=== PATIENT | male | born 1950 | race Caucasian/White ===

== ENCOUNTER 2016-08-25 09:21 | Observation (INO) | payer OTHER ==
--- NOTE | ~2016-08-25 | EKG ---
PATIENT: AMY BARRETT UNIT #: [id number] Ventricular Rate: 136 BPM Atrial Rate: 136 BPM P-R Interval: 140 ms QRS Duration: 104 ms Q-T Interval: 300 ms QTC Calculation(Bezet): 451 ms P Ada: 67 degrees Calculated R Ada: 85 degrees Calculated T Ada: 43 degrees Diagnosis Line: Sinus tachycardia Diagnosis Line: Borderline ECG Diagnosis Line: No previous ECGs available Diagnosis Line: Confirmed by JOSEPH CODY MD ([id number]) on Diagnosis Line: 08/25/2016 7:14:26 PM INTERPRETING MD: VILMA
--- NOTE | ~2016-08-25 | EE ---
Unit #: [id number] #: [id number] Patient: AMY BARRETT [id number] [address] [address] [id number] I MR#: [id number] NAME: AMY BARRETT : 1950 SEX: M STUDY DATE/TIME: 08/26/2016 UNIT: C3A PCU ROOM: [facility] STUDY DESCRIPTION: EEG Attending Physician: Nichole Knapp M.D. Referring Physician: Olivia Newby M.D. Primary Care Physician: Gagan George D.O. NEURODIAGNOSTICS REPORT PROCEDURE PERFORMED EEG. REASON FOR STUDY Multiple seizures, dementia. EEG DESCRIPTION This is an inpatient, digitally recorded, multi-montage, adult EEG with leads placed according to the International 10-20 system. Hyperventilation was not done, but photic stimulation was attempted. PROCEDURE REPORT This EEG shows 5- to 6-Hz posterior background. The patient was awake initially, then became drowsy, but I think it was still not just the drowsy state for either true slowing. The patient then fell asleep, and stage II sleep was seen. Hyperventilation was not done. Photic stimulation was attempted in intermittent stepwise pattern up to flash frequency of 30 Hz, but I did not see any driving, asymmetry or paroxysmal activity. No clinical events were seen. IMPRESSION This is an abnormal EEG showing diffuse slowing, which is indicative of encephalopathy. I think it is more than just drowsiness. I think this is slowing and encephalopathy, whether acute or chronic or progressive; that remains to be seen and probably reevaluated with further imaging studies and fully stimulated. Nothing suggesting seizure or status, so clinical correlation is recommended. Dictated by... Jorge Carmen/scout TD: 08/28/2016 07:39 JOB #: [id number] Unit #: [id number] #: [id number] Patient: AMY BARRETT NEURODIAGNOSTICS REPORT Page 1 of 1 X Olivia Newby MD NEURODIAGNOSTICS REPORT
--- NOTE | ~2016-08-25 | CO ---
Unit #: [id number] #: [id number] Patient: AMY BARRETT [id number] [facility] [address] [facility]. [place], [place] [address] [id number] Aydin MR#: [id number] NAME: AMY BARRETT. ROOM: 317 Age: 66 Sex: M Admission Date: 08/25/2016 : 1950 Attending Physician: Nichole Knapp M.D. Primary Care Physician: Gagan George D.O. Consultation Date: 08/25/2016 CONSULTATION REPORT PRIMARY CARE PHYSICIAN Dr. Gagna George. REASON FOR CONSULTATION Multiple seizure. PATIENT IDENTIFICATION This is a 66-year-old right-handed white male, who was evaluated in room ER, T6 at [facility]. SOURCE OF INFORMATION My discussion with the ER physician Dr. Skelton and also my discussion with the patient's . PROBLEM LIST 1. He has history of hypertension. 2. Alzheimer dementia and he sees Dr. Cade Patterson. He is supposed to go to see somebody at [place]. 3. History of renal stone removal. 4. Possible BPH. HISTORY OF PRESENT ILLNESS This is a 66-year-old gentleman, who was brought to the emergency room because he had generalized convulsive type episode, the first one was about 8 o'clock in the morning. He was brought in and he had another witnessed seizure. He was loaded on Keppra and they called me and I said I will follow him. CT of the head did not show anything major, nothing suggesting infection. He has been at baseline and he does have cognitive changes, but nothing has changed otherwise in his medication, fever, insect bites, travel, or other infection so he is being admitted for further workup. He is not in status. When I saw him, he already had a load of Keppra and he also got some Ativan, so he was mildly lethargic, but following commands and talking to me, he is not oriented. PAST MEDICAL HISTORY As discussed above. PAST SURGICAL HISTORY As discussed above. Unit #: [id number] #: [id number] Patient: AMY BARRETT ALLERGIES None. HOME MEDICATIONS Losartan/hydrochlorothiazide, Namenda, aspirin, Flomax, and fish oil. FAMILY HISTORY No stroke in young. SOCIAL HISTORY He is . Lives with his . No history of tobacco, alcohol, or drug use. REVIEW OF SYSTEMS Really could not be obtained, because of his present condition. PHYSICAL EXAMINATION VITAL SIGNS: His temperature is 98.4, pulse is 108, respirations 18, blood pressure 130/98, O2 saturations are 95%. Weight of 195 pounds. BMI was 29. NEUROLOGIC: He is awake, but lethargic. He is oriented to himself. He still thinks he is in PRP. He can name. He can follow some simple commands. He is otherwise not very much oriented except he could tell me his . He does follow commands. Cranial examination demonstrates full rae of vision to confrontation. Eye movements are conjugate. I did not see any ptosis. I did not see any nystagmus. Extraocular movements showed slow saccadic movements. No ptosis. No nystagmus. Sensation on the face and scalp are normal. Strength of muscles of facial expression normal. Hearing seemed to be mildly decreased. Tongue was midline. I could not visualize his oropharynx or uvula. Head turning was spontaneous. Motor examination, normal bulk and tone. Strength was 5-/5 all over. Sensory examination intact for soft touch and pain sensation. No extinction was seen. Romberg was not evaluated. Gait examination was deferred. I could not elicit any reflexes. Toes are equivocal. DIAGNOSTIC STUDIES LABORATORY RESULTS: Reviewed. IMAGING STUDIES: Reviewed. IMPRESSION Multiple seizure very nonspecific, nothing suggesting [employer] infection, nothing suggesting major lesions, is it advancing neurodegenerative condition that seem to be the case. I will check his EEG. I will follow up on his labs. I will check other labs and see how things go at present. I do not think I am going to treat him for infection and I will follow up and see how things go. Call me for any other questions, issues, or concerns. Further treatment will be based on how he does. He is postictal right now and based on the findings, we will treat him and I talked to his . Seizure precautions and state laws apply. He needs Unit #: [id number] #: [id number] Patient: AMY BARRETT to follow up with [facility] or Dr. Cade Patterson anyway and I will keep you informed. Dictated by... Jorge Carmen TD: 08/27/2016 02:21 JOB #: [id number] CONSULTATION REPORT Page 1 of 1 X Olivia Newby MD CONSULTATION REPORT
--- NOTE | ~2016-08-25 | CT71 ---
[facility] A Service of [facility] RADIOLOGY TEXT RESULTS PATIENT: AMY BARRETT LOCATION: A 317-01 : [birth year] UNIT #: [id number] AGE: [address]: Nichole Knapp MD SEX: M ORDER DR: [id number] [facility] [address] [facility]. [place], [place] [address] [id number] I MR#: [id number] Acc #: [id number] NAME: AMY BARRETT : 1950 SEX: M STUDY DATE/TIME: 08/25/2016 11:01 UNIT: CEDOF ROOM: 66285 STUDY DESCRIPTION: CT Head Wo Contrast Attending Physician: Vitaly Gonzalez M.D. Ordering Physician: Gagan Skelton M.D. Primary Care Physician: Gagan George D.O. MEDICAL IMAGING REPORT This report is preliminary unless electronic signature is present EXAM CT head without IV contrast COMPARISON: None INDICTIONS 66-year-old male with history of Alzheimer's dementia. New onset seizure today, now with altered mental status. FINDINGS Axial CT imaging of the head was performed. The CT exam was performed with one or more of the following radiation dose reduction techniques: automatic exposure control, adjustment of mA and/or kV according to patient size, and iterative reconstruction. FINDINGS Exam is limited by patient motion. Mastoid air cells, middle ears, and visualized paranasal sinuses appear well aerated. There is partial exclusion of the calvarial vertex and intracranial contents at this level. No definite acute bony abnormality or suspicious lesions. There is mild to moderate diffuse cerebral and cerebellar volume loss. No definite extraaxial fluid collection or mass effect. Please note that detailed evaluation of the inferior middle cranial fossa bilaterally as well as the posterior fossa is limited by significant motion. No convincing evidence of acute intracranial hemorrhage. IMPRESSION Motion limited exam. No acute intracranial abnormality is seen. In particular there is no evidence of acute intracranial hemorrhage or mass effect. There is hndp-yb-iqhsttal cerebral and cerebellar volume loss. Evaluation for acute ischemia is very limited due to motion. [facility] A Service of [facility] RADIOLOGY TEXT RESULTS PATIENT: AMY BARRETT LOCATION: [facility] 317-01 : [birth year] UNIT #: [id number] AGE: [address]: Nichole Knapp MD SEX: M ORDER DR: Dictated by... Aravind Brown M.D. THIS IS AN ELECTRONICALLY VERIFIED REPORT Aravind Brown M.D. at 09/02/2016 9:42 PM DONNA/gilberto TD: 08/25/2016 14:43 JOB #: [id number] MEDICAL IMAGING REPORT Page 1 of 1 COPY
--- NOTE | ~2016-08-25 | DS ---
Unit #: [id number] #: [id number] Patient: AMY BARRETT [id number] [address] [address] [id number] I MR#: [id number] NAME: AMY BARRETT ROOM: [facility] Age: 66 Sex: M Admission Date: 08/25/2016 : 1950 Discharge Date: 08/27/2016 Attending Physician: Nichole Knapp M.D. Primary Care Physician: Gagan George D.O. DISCHARGE SUMMARY ADDENDUM ALLERGIES None. DISCHARGE MEDICATIONS 1. Flomax 0.4 p.o. daily. 2. Losartan with Hydrochlorothiazide 100/25 mg 1 tablet p.o. daily. 3. Namenda 10 mg daily. 4. Multivitamin 1 tablet daily. 5. Men's 50+ tablet, 1 tablet daily. 6. Aspirin 81 daily. 7. Vitamin D3 - 1,000 daily. 8. Fish oil 1,000 daily. 9. Vimpat 100 p.o. b.i.d. Dictated by... Jorge Charles/scout TD: 08/27/2016 14:49 JOB #: [id number] DISCHARGE SUMMARY Page 1 of 1 X Nichole Knapp MD X DISCHARGE SUMMARY
--- NOTE | ~2016-08-25 | MR17 ---
[facility] A Service of [facility] & [facility] RADIOLOGY TEXT RESULTS PATIENT: AMY BARRETT LOCATION: [facility] 317- : [birth year] UNIT #: [id number] AGE: [address]: Nichole nKapp MD SEX: M ORDER DR: [id number] [facility] [address] [facility]. [place], [place] [address] [id number] I MR#: [id number] Acc #: [id number] NAME: AMY BARRETT : 1950 SEX: M STUDY DATE/TIME: 08/26/2016 11:19 UNIT: [address] ROOM: [facility] STUDY DESCRIPTION: MR Brain WWo Contrast Attending Physician: Nichole Knapp M.D. Ordering Physician: Olivia Newby M.D. Primary Care Physician: Gagan George D.O. MRI CENTER REPORT This report is preliminary unless electronic signature is present. EXAM Brain MRI with and without contrast, 08/26/2016 PROCEDURE Brain MRI with and without contrast with seizure protocol imaging. CLINICAL HISTORY New onset seizure. Patient with Alzheimer's dementia. FINDINGS There is no MR evidence of acute ischemia. There is no hemorrhage or hydrocephalus or extraaxial fluid collection. There is volume loss and minimal nonspecific white matter change, but no hemorrhage or other potential seizure focus is seen. Postcontrast images show no mass or abnormal enhancement. Hippocampal formations are symmetric in size and signal and postcontrast images are normal. IMPRESSION There is volume loss but no acute abnormality or potential anatomically identifiable seizure focus. Dictated by... Heri Kenyon M.D. THIS IS AN ELECTRONICALLY VERIFIED REPORT Heri Kenyon M.D. at 08/27/2016 3:59 PM JACKIE/kera TD: 08/26/2016 16:28 JOB #: [id number] MRI CENTER REPORT Page 1 of 1 COPY
--- NOTE | ~2016-08-25 | HP ---
Unit #: [id number] #: [id number] Patient: AMY BARRETT [id number] [address] [place], [place] [address] [id number] I MR#: [id number] NAME: AMY BARRETT. ROOM: 97552 Age: 66 Sex: M Admission Date: 08/25/2016 : 1950 Attending Physician: Carolin Gonzalez M.D. Primary Care Physician: Gagan George D.O. HISTORY AND PHYSICAL CHIEF COMPLAINT Seizures. HISTORY OF PRESENT ILLNESS The patient is a 66-year-old male, with history of hypertension and Alzheimer dementia, brought to the emergency room with new onset seizures. The patient had seizures, tonic-clonic, lasting for a minute or two at around 8 o'clock this morning. The patient is not on any new medications and denies any head trauma. The patient is a poor historian and the history is obtained by speaking to the patient's at the bedside and the ER physician also. The patient had another seizure in the emergency room and received a loading dose of Keppra in the emergency room. The patient is being admitted for the above reasons. The patient (1) second time when he had seizures. The patient had urinary incontinence at the time of seizures. The patient denies any headache. The patient had a CT of the head that shows no acute intracranial findings. The patient is being admitted for the above reasons. PAST MEDICAL HISTORY History of hypertension and Alzheimer dementia. PAST SURGICAL HISTORY History of kidney stone removal. SOCIAL HISTORY No history of smoking cigarettes, drinking alcohol or any illicit drug abuse. FAMILY HISTORY Reviewed and none. ALLERGIES No known drug allergies. HOME MEDICATIONS 1. Losartan/hydrochlorothiazide. 2. Namenda. 3. Aspirin. 4. Flomax. 5. Fish oil. REVIEW OF SYMPTOMS A 14-point review of systems was performed and only pertinent positive findings are described above. Remaining are negative. Unit #: [id number] #: [id number] Patient: AMY BARRETT PHYSICAL EXAMINATION GENERAL APPEARANCE: The patient is lying on the bed, not in acute distress. VITAL SIGNS: Temperature 98.4. Pulse 110. Respiration 16. Blood pressure 140/103. Sating 95% at room air. HEENT: Head: Atraumatic, normocephalic. ENT: Pupils equal, round, reacting to light and accommodation. Positive for tongue bite. NECK: Supple. LUNGS: Decreased air entry at the bases. HEART: Regular rate and rhythm. ABDOMEN: Soft. Positive bowel sounds. EXTREMITIES: No cyanosis. No clubbing. NEUROLOGIC: The patient is in postictal state and is unable to follow the commands. DIAGNOSTIC STUDIES LABORATORY: TSH 2.25. Glucose 144, sodium 136, potassium 3.4, chloride 103, bicarb 26. Glucose 129, BUN 13, creatinine 0.8, AST 41, ALT 52, alkaline phosphatase 75, albumin 4. WBC 9, hemoglobin 14.6, hematocrit 42.7, platelets 189. IMAGING: Chest x-ray shows low volume inspiration with atelectasis or consolidation within the left lung base. CT of the head shows no acute intracranial findings. ASSESSMENT 1. Seizures. 2. Hypokalemia. 3. Hypertension. PLAN To admit the patient as observation. The patient will be getting the MRI and the EEG and continue with the Keppra and follow. I appreciate Neurology consult and follow up with the further recommendations and replace the potassium and further recommendations will follow. Dictated by Jorge Castillo TD: 08/25/2016 15:10 JOB #: [id number] HISTORY AND PHYSICAL Page 1 of 1 X CAROLIN GONZALEZ MD X HISTORY AND PHYSICAL
--- NOTE | ~2016-08-25 | DS ---
Unit #: [id number] #: [id number] Patient: AMY BARRETT [id number] [address] [place], [place] [address] [id number] I MR#: [id number] NAME: AMY BARRETT ROOM: [facility] Age: 66 Sex: M Admission Date: 08/25/2016 : 1950 Discharge Date: Attending Physician: Nichole Knapp M.D. Primary Care Physician: Gagan George D.O. DISCHARGE SUMMARY DISCHARGE DIAGNOSES 1. New-onset seizures. 2. Metabolic encephalopathy with change in mental status, secondary to Ativan and Keppra. 3. Alzheimer's dementia. 4. Hypertension, uncontrolled. 5. Hypokalemia. CONSULTATION Dr. Newby. PROCEDURE None. DIAGNOSTIC STUDIES LABORATORY: Glucose 187. Hemoglobin A1c 5.6. Urinalysis: No infection. Urine drug screen negative. Vitamin B12 at 636. Folate normal. TSH 2.25. IMAGING: MRI of the brain shows volume loss, no acute abnormality. Chest x-ray: Atelectasis, no acute disease. NEURODIAGNOSTIC: EEG shows slowing, likely encephalopathy. HOSPITALIZATION COURSE A 66 year old admitted because of seizures. New-onset seizures x2: Patient was started on IV Keppra. Because of change in mental status, later changed to Vimpat. Currently, pharmacy is checking the castillo of Vimpat. Once taken care of, patient will be discharged and follow with his neurologist, Dr. Taylor, and also follow with [facility] Epilepsy team as an outpatient. Alzheimer's dementia with confusion: Follow with neurologist, stable. Metabolic encephalopathy, likely from Ativan and Keppra which has been changed to Vimpat. Ativan was given for MRI x1 dose. Currently, patient is alert and confused, back to baseline per her family. DISPOSITION Discharge home. FOLLOWUP 1. Follow with his neurologist in two to three weeks' time. Unit #: [id number] #: [id number] Patient: AMY BARRETT 2. Follow with family physician in one week time. Dictated by... Nichole Knapp M.D. LASHELL/melvin TD: 08/27/2016 13:43 JOB #: [id number] DISCHARGE SUMMARY Page 1 of 1 X Nichole Knapp MD DISCHARGE SUMMARY
--- NOTE | ~2016-08-25 | CR72 ---
[facility] A Service of [facility] & [facility] RADIOLOGY TEXT RESULTS PATIENT: AMY BARRETT LOCATION: [facility] 317-01 : 50 UNIT #: [id number] AGE: [address]: Nichole Knapp MD SEX: M ORDER DR: [id number] [facility] [address] [facility]. [place], [place] [address] [id number] I MR#: [id number] Acc #: [id number] NAME: AMY BARRETT : 1950 SEX: M STUDY DATE/TIME: 08/25/2016 11:12 UNIT: CEDOF ROOM: 48221 STUDY DESCRIPTION: CR Chest Single View Portable Attending Physician: Vitaly Gonzalez M.D. Ordering Physician: Gagan Skelton M.D. Primary Care Physician: Gagan George D.O. MEDICAL IMAGING REPORT This report is preliminary unless electronic signature is present EXAM Portable chest INDICATIONS Confusion today. Elevated blood pressure, history of seizures. No comparisons. FINDINGS There is low inspiratory volume. There is atelectasis or consolidation within the left lung base. Heart size normal. Degenerative changes of the AC joint on the right. IMPRESSION Low-volume inspiration with atelectasis or consolidation within the left lung base. Dictated by... Luis F Quiñones M.D. THIS IS AN ELECTRONICALLY VERIFIED REPORT Luis F Quiñones M.D. at 08/26/2016 7:51 AM EMILIA/gilberto TD: 08/25/2016 14:36 JOB #: [id number] MEDICAL IMAGING REPORT Page 1 of 1 COPY
[2016-08-25 10:12] LABS: BASOPHIL% 0.4 % (0-2.5); DIFF IND NO; EOSINOPHIL# 0.1 X10e3 (0-0.7); EOSINOPHIL% 1.4 % (0.0-7.0); HEMATOCRIT 42.7 % (38.0-50.0); HEMOGLOBIN 14.6 gm/dL (13.0-16.0); LYMPHOCYTE% 22.8 % (17.0-45.0); MEAN CELL VOLUME 89.7 FL (83-96); MEAN CORPUSCULAR HEMOGLOBIN 30.6 PG (28-34); MEAN CORPUSCULAR HGB CONC 34.2 g/dL (30-36); MEAN PLATELET VOLUME 9.7 FL (6.5-11.5); MONOCYTE# 0.6 X10e3 (0-1.0); MONOCYTE% 6.4 % (3.0-12.0); NEUTROPHIL# 6.2 X10e3 (1.5-7.1); PLATELET COUNT 189 X10e3 (140-420); RED BLOOD COUNT 4.76 X10e (3.90-5.60); RED CELL DISTRIBUTION WIDTH 13.5 % (11.0-15.5)
[2016-08-25 10:42] LABS: BILIRUBIN, DIRECT 0.1 mg/dL (0.0-0.2); BILIRUBIN,INDIRECT 0.5 mg/dL (0.0-0.9); BILIRUBIN,TOTAL 0.6 mg/dL (0.2-2.0); BUN/CREATININE RATIO 16.25; CALCIUM SERUM 9.2 mg/dL (8.4-10.2); CREATININE SERUM 0.8 mg/dL (0.6-1.4); GLOM FILT RATE Estimated 93.1 mL/min (>60); POTASSIUM 3.4 mmol/L (3.5-5.1); PROTEIN TOTAL SERUM 7.1 g/dL (6.0-8.3)
[2016-08-25] MEDS ORDERED: LOSARTAN-HCTZ1 EAC1 PO (11:38)
[2016-08-25] MEDS ORDERED: ASPIRIN81 MG PO (11:39)
[2016-08-25] MEDS ORDERED: NAMENDA10 MG PO (11:39)
[2016-08-25] MEDS ORDERED: FLOMAX0.4 M1 PO (11:40)
[2016-08-25] MEDS ORDERED: FISH OIL 1,0001 EAC1 PO (11:40)
[2016-08-25] MEDS ORDERED: SAW PALMETTO450 MG PO (11:41)
[2016-08-25] MEDS ORDERED: VITAMIN D31000 UNIT PO (11:41)
[2016-08-25] MEDS ORDERED: HAIR, SKIN & N1 EAC2 PO (11:41)
[2016-08-25] MEDS ORDERED: ONE DAILY MEN'1 EACH PO (11:42)
[2016-08-25 14:56] LABS: FOLATE (FOLIC ACID) >23.3 ng/mL (>5.8)
[2016-08-25 15:49] LABS: URINE SOURCE CLEAN CATCH
[2016-08-25 16:00] LABS: URINE APPEARANCE TURBID; URINE BILIRUBIN NEG (NEG); URINE BLOOD NEG (NEG); URINE COLOR YELLOW; URINE GLUCOSE NEG (NEG); URINE KETONE NEG (NEG); URINE LEUKOCYTE ESTERASE NEG (NEG); URINE NITRATE NEG (NEG); URINE PROTEIN NEG (NEG); URINE SPECIFIC GRAVITY 1.021 (1.003-1.035); URINE UROBILINOGEN 0.2 MG/DL (NEG)
[2016-08-25 16:12] LABS: AMPHETAMINE NEG (NEG); BARBITURATES NEG (NEG); BENZODIAZEPINES NEG (NEG); COCAINE NEG (NEG); MARIJUANA NEG (NEG); OPIATES NEG (NEG); TRICYCLIC ANTIDEPRESSANTS NEG (NEG); U METHADONE NEG (NEG)
[2016-08-25 16:23] LABS: CULTURE INDICATED? NO
[2016-08-26 05:52] LABS: HEMATOCRIT 38.9 % (38.0-50.0); HEMOGLOBIN 13.4 gm/dL (13.0-16.0); MEAN CELL VOLUME 88.6 FL (83-96); MEAN CORPUSCULAR HEMOGLOBIN 30.5 PG (28-34); MEAN CORPUSCULAR HGB CONC 34.4 g/dL (30-36); MEAN PLATELET VOLUME 9.5 FL (6.5-11.5); RED BLOOD COUNT 4.38 X10e (3.90-5.60); RED CELL DISTRIBUTION WIDTH 13.2 % (11.0-15.5); WHITE BLOOD COUNT 11.4 X10e3 (4.0-10.5)
[2016-08-26 06:23] LABS: BUN/CREATININE RATIO 18.33; CALCIUM SERUM 9.1 mg/dL (8.4-10.2); CREATININE SERUM 0.6 mg/dL (0.6-1.4); GLOM FILT RATE Estimated 104.8 mL/min (>60); POTASSIUM 3.1 mmol/L (3.5-5.1)
[2016-08-26] MEDS ORDERED: KEPPRA500 M2 PO (14:24)
[2016-08-27] MEDS ORDERED: VIMPAT100 MG PO (13:24)
== END 2016-08-27 14:42 | disposition home or self-care (01) ==
LOC: CED 09:21 → CEDOF 12:00 → C3A PCU 12:00 → CED 12:19 → CEDOF 12:19 → C3A PCU 15:35 → CEDOF 15:35 → C3A PCU 15:35
PROVIDERS: Emergency Medicine; Internal Medicine; Psychiatry & Neurology Neurology
DX: R56.9 Unspecified convulsions (principal); G92 Toxic encephalopathy; G30.9 Alzheimer's disease, unspecified; F02.80 Dementia in other diseases classified elsewhere, unspecified severity, without behavioral disturbance, psychotic disturbance, mood disturbance, and anxiety; I10 Essential (primary) hypertension; E87.6 Hypokalemia; R94.01 Abnormal electroencephalogram [EEG]
CPT/HCPCS: 36415; 70450; 70553; 71010; 80048; 80076; 80307; 81003; 82607; 82746; 82947; 83036; 84443; 85025; 85027; 93005; 95816; 96374; 96375; 99285; A9577; G0378; J1953; J2060

== ENCOUNTER 2016-11-22 18:27 | Emergency (ER) | payer OTHER ==
[~2016-11-22] VITALS: Ht 175.3 cm; Wt 88.9 kg
--- NOTE | ~2016-11-22 | CT71 ---
[facility] A Service [facility] RADIOLOGY TEXT RESULTS PATIENT: AMY BARRETT LOCATION: [facility] : 50 UNIT #: [id number] AGE: [address]: Nic Hutchinson MD SEX: M ORDER DR: [id number] [address] [address] [id number] E MR#: [id number] Acc #: [id number] NAME: AMY BARRETT : 1950 SEX: M STUDY DATE/TIME: 11/22/2016 18:43 UNIT: SED ROOM: STUDY DESCRIPTION: CT Head Wo Contrast Attending Physician: Nic Hutchinson M.D. Ordering Physician: [id number] Brittany Hutchinson Primary Care Physician: Gagan George D.O. MEDICAL IMAGING REPORT This report is preliminary unless electronic signature is present. EXAM CT head without contrast, 11/22/[address] head without contrast, 08/25/2016 HISTORY Unresponsive, seizures. TECHNIQUE This CT exam was performed with one or more of the following radiation dose reduction techniques: automatic exposure control, adjustment of mA and/or kV according to patient size, and iterative reconstruction. FINDINGS CT of the head was obtained without contrast in the axial plane as per the protocol. Motion artifact limits evaluation particularly in the skull base. No acute intracranial hemorrhage, space occupying mass, mass effect or midline shift. Mild hypodensities are noted in the periventricular white matter, nonspecific. Mild S-shaped nasal septal deviation is seen. Minimal paranasal sinus mucosal thickening is seen. Mastoid air cells are well aerated. Orbits with the ocular structures do not demonstrate any significant abnormality. There is diffuse fatty infiltration of bilateral parotid glands, benign. IMPRESSION 1. No acute intracranial hemorrhage, hydrocephalus or midline shift. 2. Motion artifact is noted in multiple images limiting evaluation. 3. There is probably mild hypodensity in the periventricular white matter likely related to mild chronic microvascular ischemic change or migraine based on age and statistics. [facility] A Service [facility] RADIOLOGY TEXT RESULTS PATIENT: AMY BARRETT LOCATION: SED : 50 UNIT #: [id number] AGE: [address]: Nic Hutchinson MD SEX: M ORDER DR: Dictated by... Celsa Shannon M.D. THIS IS AN ELECTRONICALLY VERIFIED REPORT Celsa Shannon M.D. at 11/26/2016 10:00 PM CPR/kera TD: 11/23/2016 15:34 JOB #: [id number] MEDICAL IMAGING REPORT Page 1 of 1
--- NOTE | ~2016-11-22 | EKG ---
PATIENT: AMY BARRETT UNIT #: [id number] Ventricular Rate: 114 BPM Atrial Rate: 114 BPM P-R Interval: 146 ms QRS Duration: 94 ms Q-T Interval: 334 ms QTC Calculation(Bezet): 460 ms P Greenleaf: 76 degrees Calculated R Greenleaf: 107 degrees Calculated T Greenleaf: 51 degrees Diagnosis Line: Sinus tachycardia Diagnosis Line: Possible Left atrial enlargement Diagnosis Line: Possible Lateral infarct , age undetermined Diagnosis Line: Abnormal ECG Diagnosis Line: When compared with ECG of 25-AUG-2016 09:51, Diagnosis Line: Borderline criteria for Lateral infarct are now Diagnosis Line: Present Diagnosis Line: No significant change was found Diagnosis Line: Confirmed by MIRNA FONSECA MD ([id number]) on Diagnosis Line: 11/27/2016 11:16:41 AM INTERPRETING MD: RAYMUNDO GARCIA
--- NOTE | ~2016-11-22 | CR72 ---
[facility] A Service of [facility] & [facility] RADIOLOGY TEXT RESULTS PATIENT: AMY BARRETT LOCATION: SED : 50 UNIT #: [id number] AGE: [address]: Nic Hutchinson MD SEX: M ORDER DR: [id number] [address] [address] [id number] E MR#: [id number] Acc #: [id number] NAME: AMY BARRETT : 1950 SEX: M STUDY DATE/TIME: 11/22/2016 18:53 UNIT: SED ROOM: STUDY DESCRIPTION: CR Chest Single View Portable Attending Physician: Nic Hutchinson M.D. Ordering Physician: Nic Hutchinson M.D. Primary Care Physician: Gagan George D.O. MEDICAL IMAGING REPORT This report is preliminary unless electronic signature is present. EXAM Single view of the chest, 11/22/2016 at 18:53 hours COMPARISON Single view chest, 08/25/2016 HISTORY Unresponsive, seizures. FINDINGS Single view of the chest was obtained. It is a poor inspiratory film. Mild crowding of bronchovascular markings are seen. There is an opacity in the left lateral CP angle which could be related to summation of shadows. Minimal left pleural fluid and underlying atelectasis/infiltrate cannot be excluded. It does not appear to have significantly worsened when compared to the prior study from three months ago. Normal size heart. Degenerative changes in the T-spine. Dictated by... Celsa Shannon M.D. THIS IS AN ELECTRONICALLY VERIFIED REPORT Celsa Shannon M.D. at 11/26/2016 10:00 PM CPR/kera TD: 11/23/2016 15:41 JOB #: [id number] MEDICAL IMAGING REPORT Page 1 of 1
[~2016-11-22 18:27] MED LIST: ASPIRIN81 MG PO; FISH OIL 1,0001 EAC1 PO; FLOMAX0.4 M1 PO; HAIR, SKIN & N1 EAC2 PO; KEPPRA500 M2 PO; LOSARTAN-HCTZ1 EAC1 PO; NAMENDA10 MG PO; ONE DAILY MEN'1 EACH PO; SAW PALMETTO450 MG PO; VIMPAT100 MG PO; VITAMIN D31000 UNIT PO
[2016-11-22] MEDS ORDERED: VIMPAT100 MG (18:41)
[2016-11-22] MEDS ORDERED: ASPIRIN81 M2 (18:41)
[2016-11-22 18:44] LABS: BASOPHIL# 0.1 X10e3 (0-0.3); BASOPHIL% 0.7 % (0-2.5); EOSINOPHIL# 0.1 X10e3 (0-0.7); EOSINOPHIL% 1.4 % (0.0-7.0); HEMATOCRIT 45.4 % (38.0-50.0); HEMOGLOBIN 15.3 gm/dL (13.0-16.0); LYMPHOCYTE# 3.9 X10e3 (1.0-3.5); LYMPHOCYTE% 42.2 % (17.0-45.0); MEAN CELL VOLUME 93.9 FL (83-96); MEAN CORPUSCULAR HEMOGLOBIN 31.7 PG (28-34); MEAN CORPUSCULAR HGB CONC 33.8 g/dL (30-36); MEAN PLATELET VOLUME 9.6 FL (6.5-11.5); MONOCYTE# 0.8 X10e3 (0-1.0); MONOCYTE% 8.5 % (3.0-12.0); NEUTROPHIL# 4.3 X10e3 (1.5-7.1); NEUTROPHIL% 47.2 % (40-75); PLATELET COUNT 234 X10e3 (140-420); RED BLOOD COUNT 4.84 X10e (3.90-5.60); RED CELL DISTRIBUTION WIDTH 13.3 % (11.0-15.5); WHITE BLOOD COUNT 9.2 X10e3 (4.0-10.5)
[2016-11-22 18:45] LABS: DIFF IND NO
[2016-11-22 18:56] LABS: INR 1.1; PROTHROMBIN TIME (PATIENT) 12.6 SECONDS (9.5-12.4)
[2016-11-22 18:58] LABS: POC - CKMB 4.3 ng/mL (0.0-7.9); POC - TROPONIN <0.05 ng/mL (<=0.05)
[2016-11-22 19:03] LABS: PARTIAL THROMBOPLASTIN TIME 27.9 SECONDS (25.6-38.1)
[2016-11-22 19:09] LABS: ALBUMIN SERUM 4.8 g/dL (3.5-5.0); BILIRUBIN, DIRECT 0.1 mg/dL (0.0-0.2); BILIRUBIN,INDIRECT 0.5 mg/dL (0.0-0.9); BILIRUBIN,TOTAL 0.6 mg/dL (0.2-2.0); CALCIUM SERUM 9.8 mg/dL (8.4-10.2); CREATININE SERUM 1.1 mg/dL (0.6-1.4); GLOM FILT RATE Estimated 69.6 mL/min (>60); POTASSIUM 3.6 mmol/L (3.5-5.1); PROTEIN TOTAL SERUM 7.9 g/dL (6.0-8.3)
[2016-11-22 19:57] LABS: URINE SOURCE CLEAN CATCH
[2016-11-22 19:59] LABS: MICRO INDICATED? NO; URINE APPEARANCE CLEAR; URINE BILIRUBIN NEG (NEG); URINE BLOOD NEG (NEG); URINE COLOR YELLOW; URINE GLUCOSE NEG (NORM); URINE KETONE NEG (NEG); URINE LEUKOCYTE ESTERASE NEG (NEG); URINE NITRATE NEG (NEG); URINE PH 6.5 (5-8); URINE PROTEIN NEG (NEG); URINE UROBILINOGEN 0.2 MG/DL (NORM)
== END 2016-11-22 22:52 | disposition short-term general hospital (02) ==
LOC: SED 18:27
PROVIDERS: Emergency Medicine
DX: R56.9 Unspecified convulsions (principal)
CPT/HCPCS: 36415; 70450; 71010; 80048; 80076; 81003; 82553; 82947; 83605; 83874; 84484; 85025; 85610; 85730; 93005; 96360; 96361; 99285